=== PATIENT | female | born 2000 | race Caucasian/White ===

== ENCOUNTER 2024-08-24 20:06 | Emergency (ER) | payer SELFPAY ==
[~2024-08-24] VITALS: Ht 162.6 cm; Wt 65.8 kg
== END 2024-08-24 22:36 | disposition home or self-care (01) ==
LOC: ER 20:06
DX: S61.411A Laceration without foreign body of right hand, initial encounter (principal); W25.XXXA Contact with sharp glass, initial encounter
CPT/HCPCS: 12001; 99282-25

== ENCOUNTER → 2025-03-17 | Outpatient (CLI) | payer OTHER ==
[2025-03-17 15:47] LABS: Chlamydia Trachomatis Vaginal NOT DETECTED (NOT DETECT); Neisseria Gonorrhoea Vaginal NOT DETECTED (NOT DETECT)
== END | disposition home or self-care (01) ==
LOC: LAB SHORT 12:51 → LAB 12:51
PROVIDERS: Obstetrics & Gynecology
DX: Z11.3 Encounter for screening for infections with a predominantly sexual mode of transmission (principal)
CPT/HCPCS: 87491; 87591